=== PATIENT | male | born 1945 | race Caucasian/White ===

== ENCOUNTER 2017-05-30 12:27 | Emergency (ER) | payer MEDICARE ==
[~2017-05-30] VITALS: Ht 188 cm; Wt 97.1 kg
--- NOTE | 2017-05-30 12:55 | Emergency Room Report ---
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 N Clinical Suspician of Infection? N Mental Status: 1 - Regular (Normal Baseline) Sepsis Risk:Low Sepsis Risk Have you (or family members/close friends) recently traveled outside the [place]? N If Yes, where/when: Have you had exposure to infectious disease within the past month? TB? Other? Specify: 71 years old white male with history of irregular heartbeats pacemaker placement and a stroke. He has baseline aphasia, he was brought because of shortness of breath and low oxygen saturation by EMS. The patient is a poor historian. Source patient, RN notes reviewed, EMS Exam Limitations clinical condition ALLERGIES Uncoded Allergies: PCN (Mild, 05/30/17) History Medical History General More? No Immunization Hx Ped.Immunizations UTD Yes DT/Tetanus Unknown Surgical Hx Previous Surgery?N Social History Smoking Hx Smoker: Former Smoker Tobacco: Yes Type Cigarettes Packs/day < 1 Pack Are you/the child exposed to second-hand smoke: No Alcohol Alcohol: No Review of Systems All Other Systems Reviewed and Negative Constitutional see HPI, fever Eyes no symptoms reported ENT no symptoms reported. Respiratory see HPI, shortness of breath Cardiovascular no symptoms reported Gastrointestinal no symptoms reported Genitourinary no symptoms reported. Musculoskeletal no symptoms reported Skin no symptoms reported Psychiatric/Neurological no symptoms reported Physical Exam Vital Signs Vital Signs Date Time Temp Pulse Resp B/P Pulse O2 O2 Flow FiO2 Ox Delivery Rate 05/30 1619 74 18 140/84 95 3 05/30 1501 101 18 124/100 95 3 05/30 1402 101 18 125/60 95 3 05/30 1327 112 18 140/81 95 3 05/30 1229 98.3 60 18 142/75 87 - WBC >12,000 or <4,000 or 10% bands? 2 or more SIRS Criteria Met? B/P:142/75 MAP:97 Creatinine >2.0? UA output<0.5ml/kg/hr for 2 hrs? Platelet count >100,000? Lactate >2.0mmol/1? INR >1.2 or PTT > than 60 sec? Evidence of Organ Dysfunction? Provider documented clinical suspician of infection? N Sepsis Criteria Count: 0 Sepsis Risk: Low Sepsis Risk General Appearance normal appearance, WD/WN Eye Exam - bilateral eye normal exam, bilateral eye PERRL, bilateral eye EOMI Ear, Nose, Throat hearing grossly normal, normal ENT inspection Neck normal inspection, non-tender, supple, full range of motion Respiratory Status No: respiratory distress, trachea midline, chest symmetrical. Lung Sounds right: rales, rhonchi, crackles. Cardiovascular normal exam, regular rate/rhythm, no peripheral edema, no gallop, no JVD, no murmur, no rub, normal peripheral pulses Gastrointestinal normal bowel sounds, normal exam, non tender, soft, no organomegaly Extremities non-tender, normal range of motion, normal inspection Neurologic alert, linseed oil order filler II-XII nml as tested, normal exam, oriented x 3 Reflexes Reflexes normal Yes Medical Decision Making LABS/Meds/Orders Pt receiving controlled substance in ED? No Results/Orders Laboratory Tests 05/30/17 1255: ABG pH 7.41, ABG pCO2 (Temp Corrct 54.6 H, ABG pO2 (Temp Correct 49.1 *L, ABG HCO3 33.8 H, ABG Total CO2 35.5 H, ABG O2 Sat (Calculated) 84.5 *L, ABG Base Excess 9.2 H, Yves Test ACCEPTABLE, Blood Gas Comments LEFT RADIAL 05/30/17 1250: Lactic Acid 2.0 05/30/17 1225: Sodium 139, Potassium 3.2 L, Chloride 97 L, Carbon Dioxide 34 H, BUN 22 H, Creatinine 1.1, Estimated Creat Clear 83, Estimated GFR (MDRD) 66, Glucose 156 H, Calcium 9.2, Total Bilirubin 0.7, AST 88 H, ALT 26, Alkaline Phosphatase 131 H, Creatine Kinase 33 L, CK-MB (CK-2) Rel Index 1.5, CK and CKMB Interp < 0.5, Troponin I < 0.02, Total Protein 7.8, Albumin 3.2 L, Globulin 4.6 H, Albumin/ Globulin Ratio 0.7 L, PT 12.5 H, INR 1.16 H, APTT 27.3, WBC 12.2 H, RBC 5.40 , Hgb 15.6, Hct 47.5 H, MCV 88.0, RDW 16.5, Plt Count 179, Gran % 86.6 H, Gran # 10.6 H, Total Counted 100, Lymphocytes % 10.0, Monocytes % 3.4, Neutrophils 85 H, Lymphocytes (Manual) 12, Lymphocytes # 1.2, Monocytes (Manual) 3, Monocytes # 0.4, RBC/WBC/PLT Morphology NORMAL, Platelet Estimate NORMAL, PUBS MCHC 32.8, MCH 28.9 Current Medication Orders Sig/Joycelyn Start time Last Medication Dose Route Stop Time Status Admin Metronidazole 100 ML .STK-MED ONE 05/30 1457 DC IV Levofloxacin/Dextrose 150 ML .STK-MED ONE 05/30 1324 DC IV Albuterol/Ipratropium 0 .STK-MED ONE 05/30 1320 DC INH Levofloxacin/Dextrose 150 ML ONCE ONE 05/30 1300 DCr 05/30 IV 05/30 1429 1325 Metronidazole 100 ML ONCE ONE 05/30 1300 DC 05/30 IV 05/30 1359 1500 Albuterol/Ipratropium 3 ML ONCE ONE 05/30 1245 DC 05/30 INH 05/30 1246 1321 Orders Procedure Date/time Status CULTURE, SPUTUM 05/30 1259 Active RT REQUEST DUONEB 05/30 1245 Active LACTIC ACID 05/30 1241 Complete 12 LEAD EKG-VIRAJSON (INITIAL) 05/30 1238 Active ELECTROCARDIOGRAM REQUEST 05/30 1238 Active ARTERIAL BLOOD GAS REQUEST 05/30 1238 Active CULTURE, BLOOD 05/30 1238 Active PARTIAL THROMBOPLASTIN TIME 05/30 1238 Complete PROTHROMBIN TIME 05/30 1238 Complete CBC WITH AUTO DIFF 05/30 1238 Complete CARDIAC ENZYMES 05/30 1238 Complete CHEM 12 PROFILE 05/30 1238 Complete DIFFERENTIAL-WBC 05/30 1225 Complete CM/EKG CM/EKG EKG electrocardiogram is atrial flutter with rapid ventricular response of 110 XRAY/CT/US XRAY/CT/US XRAY chest XR interpretation by reviewed by me Xray Results abnormal Comment aspiration pneumonia Departure Departure Time of Disposition 1349 Disposition DC/XFER from ER to [facility] Clinical Impression Primary Impression: Aspiration pneumonia Secondary Impressions: Atrial flutter with rapid ventricular response, Dysphagia as late effect of cerebrovascular disease, Dysphasia Condition STABLE Additional Instructions I discussed with the daughter who's expressed her wishes the patient to be transferred to the [facility] and eventually to a correction. I discussed with Dr. Talamantes will give me the coordinator contact number. I called [facility] spoke with the hospitalist Dr Story who accepted the patient. 1649 received report of an available bed at [facility]. [facility] Brush Discharge Counseling Counseled pt/family regarding diagnosis, test results, medications/RX, follow up needs ED Critical Care Critical Care No If Critical Care minutes are documented, the time involved in the performance of seperately reportable procedures was not counted toward critical care time documented. I directly delivered medical care to this critically ill and/or injured patient. Timely evaluation and treatment was necessary to address the significant organ system(s) dysfunction present in this patient. at 1653
[2017-05-30 13:05] LABS: HEMOGLOBIN 15.6 g/dL (12.2-16.2)
[2017-05-30 13:06] LABS: ALLEN'S TEST ACCEPTABLE; ARTERIAL ABE 9.2 MMOL/L (-2.4-+2.3); ARTERIAL PO2 49.1 MMHG (80-100); ARTERIAL TCO2 35.5 MMOL/L (23-27); OXYGEN ROOM AIR
[2017-05-30 13:07] LABS: BUN 22 mg/dL (7-18); LYMPH # 1.2 K/mm3 (0.7-4.5)
[2017-05-30 13:09] LABS: GFR (ESTIMATED) 66 ML/MIN (>60)
[2017-05-30 13:42] LABS: NEUTROPHILS 85 % (42-76)
--- NOTE | 2017-05-30 15:22 | RADIOLOGY REPORT PS360 ---
CHEST(2 VIEWS-NOT PORTABLE) HISTORY: Shortness of air, aspiration pneumonia soa low sat RLL crackles, aspiration pneumonia ORDERING PHYSICIAN: Wilman Brush MD PATIENT AGE: 71 years COMPARISON: None available FINDINGS: There is a bipolar pacemaker present. Normal heart size. There is dense consolidation involving the right upper lobe and right middle lobe with some sparing of the right apex. There are atelectatic changes in the left lower lobe. No obvious effusion. IMPRESSION: Right upper lobe and right middle lobe pneumonia
[2017-05-30 17:40] VITALS: BP 150/82
== END 2017-05-30 17:46 | disposition short-term general hospital (02) ==
LOC: ER 12:27
PROVIDERS: Emergency Medicine
DX: J69.0 Pneumonitis due to inhalation of food and vomit (principal); Z87.891 Personal history of nicotine dependence; I48.92 Unspecified atrial flutter; I69.991 Dysphagia following unspecified cerebrovascular disease; Z88.0 Allergy status to penicillin